=== PATIENT | female | born 1985 | race Two or more races ===

== ENCOUNTER 2023-09-19 10:50 | Emergency (ER) | payer OTHER ==
[~2023-09-19] VITALS: Ht 152.4 cm; Wt 61.2 kg
[2023-09-19] MEDS ORDERED: CLARITIN10 M1 (11:11)
[2023-09-19] MEDS ORDERED: CYCLOBENZAPRINE10 MG PO ×2 (14:35→14:40)
[2023-09-19] MEDS ORDERED: TYLENOL ARTHRI650 MG PO (14:35)
== END 2023-09-19 14:45 | disposition home or self-care (01) ==
LOC: ER 10:51
DX: M54.9 Dorsalgia, unspecified (principal); M62.838 Other muscle spasm